=== PATIENT | female | born 1980 | race Caucasian/White ===

== ENCOUNTER 2016-11-17 23:37 | Emergency (ER) | payer OTHER ==
[~2016-11-17] VITALS: Ht 157.5 cm; Wt 104.6 kg
[~2016-11-17 23:37] MED LIST: ABILIFY5 MG PO; CIPRO500 MG PO; GEODON40 MG PO; MOBIC15 MG PO; MUCINEX D ER T1 EACH PO; NORCO 5/3251 TABLET PO; PREDNISONE50 MG PO; PYRIDIUM100 MG PO; TESSALON PERLE100 MG PO; ULTRACET1 TABLET PO; ZITHROMAX Z-PA250 MG PO; ZITHROMAX250 MG PO; ZOLOFT100 MG PO; ZOLOFT50 M1 PO; ZOLOFT50 MG PO
[2016-11-18] MEDS ORDERED: NIZORAL 2% CREA15 GM TP (00:25)
[2016-11-18 00:38] VITALS: BP 123/92
== END 2016-11-18 00:38 | disposition home or self-care (01) ==
LOC: EME 23:37
DX: S90.212A Contusion of left great toe with damage to nail, initial encounter (principal); B35.3 Tinea pedis; W22.8XXA Striking against or struck by other objects, initial encounter
CPT/HCPCS: 99281; 99283

== ENCOUNTER 2018-01-16 22:52 | Emergency (ER) | payer OTHER ==
[~2018-01-16] VITALS: Ht 157.5 cm; Wt 108.7 kg
[~2018-01-16 22:52] MED LIST changes: +NIZORAL 2% CREA15 GM TP
[2018-01-17] MEDS ORDERED: NAPROSYN500 MG PO (00:49)
[2018-01-17 01:18] VITALS: BP 128/92
== END 2018-01-17 01:19 | disposition home or self-care (01) ==
LOC: EME 22:52
DX: S83.91XA Sprain of unspecified site of right knee, initial encounter (principal); W10.9XXA Fall (on) (from) unspecified stairs and steps, initial encounter; Z88.0 Allergy status to penicillin; Z88.5 Allergy status to narcotic agent
CPT/HCPCS: 73564; 99281; 99284